=== PATIENT | male | born 1940 | race Caucasian/White ===

== ENCOUNTER → 2017-01-28 | Outpatient (CLI) | payer OTHER | LOC: FIMAGING 10:57 | PROVIDERS: ATTEND Family Medicine | DX: Z13.820 Encounter for screening for osteoporosis (principal); Z85.46 Personal history of malignant neoplasm of prostate ==

== ENCOUNTER 2017-10-16 20:27 | Emergency (ER) | payer OTHER ==
--- NOTE | 2017-10-16 20:59 | EDPHY ---
H & P Stated Complaint: BLOATING , CONSTIPATION X 7 DAYS AND NOW VOMITING Time Seen by Provider: 10/16/17 20:57 HPI/ROS: HPI: This is a 77-year-old male who presents with Chief Complaint: BLOATING , CONSTIPATION X 7 DAYS AND NOW VOMITING Location: Abdomen Quality: Bloating, constipation Duration: 7 days Signs and Symptoms: no fever, + nausea, + vomiting, no hematemesis, no blood in stool, + abdominal bloating, no diarrhea, no back pain, no urinary symptoms, no testicular/groin pain, no indigestion, no chest pain, no shortness of breath Timing: Worsening Severity: Moderate to severe Context: Patient presents with 7 day history of worsening abdominal bloating accompanied by nausea and vomiting for 6 hr 2 days ago but none since. Reports he has not had a bowel movement in over 7 days. He is not sure if he is passing gas from below. He denies any fever/urinary symptoms/diarrhea. He has a history of appendectomy and a hernia. He reports that he has abdominal discomfort at this time but no actual pain. He tried milk of magnesia without relief. Denies any blood in his urine. History of kidney stones on the right. After further questioning patient reports that around he felt left flank pain that lasted for several hours so she with the nausea and vomiting but it has since resolved. Modifying Factors: See above Comment: ROS: see HPI Constitutional: No fever, no chills, no weight loss Eyes: No blurred vision Respiratory: No shortness of breath, no cough Cardiovascular: No chest pain, no palpitations Gastrointestinal: + nausea, +vomiting, no diarrhea, no hematemesis, no blood in stool Genitourinary: No dysuria, no blood in urine Extremities: No myalgias, no edema Neurologic: No weakness, no numbness Skin: No rashes, no petechiae Hematologic: No bruising, no bleeding MEDICAL/SURGICAL/SOCIAL HISTORY: Medical/surgical history: APPENDECTOMY, HERNIA, MENEIRE'S DX, hypertension, CVA , PROSTATE CA, HIGH CHOLESTEROL, claustrophobia Social history: Nonsmoker. Family history noncontributory. CONSTITUTIONAL: Extremely pleasant nontoxic-appearing elderly white male, awake and alert, no obvious distress HEENT: Atraumatic and normocephalic, PERRL, EOMI. Nares patent; no rhinorrhea; no nasal mucosal edema. Tympanic membranes clear. Oropharynx clear, no exudate and moist pink mucosa. Airway patent. No lymphadenopathy. No meningismus. Cardiovascular: Normal S1/S2, regular rate, regular rhythm, without murmur rub or gallop. PULMONARY/CHEST: Symmetrical and nontender. Clear to auscultation bilaterally. Good air movement. No accessory muscle usage. ABDOMEN: Soft, moderately distended, mild generalized tenderness, no rebound, no guarding, no peritoneal signs, no masses or organomegaly. No CVAT. EXTREMITIES: 2/2 pulses, strength 5/5, no deformities, no clubbing, no cyanosis or edema. NEUROLOGICAL: no focal neuro deficits. GCS 15. SKIN: Warm and dry, no erythema. no rash. Good capillary refill. Source: Patient Exam Limitations: No limitations - Personal History Current Tetanus/Diphtheria Vaccine: Yes Current Tetanus Diphtheria and Acellular Pertussis (TDAP): Yes - Medical/Surgical History Hx Asthma: No Hx Chronic Respiratory Disease: No Hx Diabetes: No Hx Cardiac Disease: Yes Hx Renal Disease: No Hx Cirrhosis: No Hx Alcoholism: No Hx HIV/AIDS: No Hx Splenectomy or Spleen Trauma: No Other PMH: APPY, HERNIA, MENERS DX, HTN, CVA, PROSTATE CA, HIGH CHOLESTEROL - Social History Smoking Status: Never smoked Constitutional: Initial Vital Signs Temperature (C) 36.8 C 10/16/17 20:31 Heart Rate 80 10/16/17 20:31 Respiratory Rate 18 10/16/17 20:31 Blood Pressure 137/82 H 10/16/17 20:31 O2 Sat (%) 93 10/16/17 20:31 O2 Delivery Mode Room Air O2 (L/minute) 3 Allergies/Adverse Reactions: acetaminophen [From Tylenol] Allergy (Unknown, Verified 10/16/17 20:35) Home Medications: Medication Instructions Recorded Amlodipine 02/10/10 Flomax 02/10/10 LISINOPRIL 02/10/10 SIMVASTATIN 02/10/10 Aspirin [Aspirin 325 mg (*)] 325 mg PO DAILY 10/16/17 Diltiazem HCl [Diltiazem ER] 120 mg PO 10/16/17 Lisinopril 20 mg PO 10/16/17 Ondansetron Odt [Zofran Odt 4 mg 4 mg PO Q4 PRN #12 tab 10/16/17 (*)] Oxycodone HCl 5 mg PO Q4 PRN #10 capsule 10/16/17 Polyethylene Glycol 3350 [Miralax 17 gm PO DAILY 7 Days pkt 10/16/17 17 gm (*)] Medical Decision Making - Diagnostics Imaging Results: Imaging Impressions Abdomen/Pelvis CT 10/16/17 21:04 Impression: 1. 3.7 mm calculus in the distal left ureter with mild left hydronephrosis. Nonobstructive right nephrolithiasis. 2. Constipation. Mild diverticulosis sigmoid colon. 3. Other chronic findings as above. Results called and discussed with Giovanna Ca PA-C, at 10/16/2017 22:50. ED Course/Re-evaluation: Labs, IV fluids, IV medications, CT abdomen and pelvis scan without contrast ordered to evaluate for small bowel obstruction Patient given 1 L normal saline, IV Dilaudid 0.5 mg, IV promethazine 12.5 mg complete relief of the symptoms Vital signs reviewed upon arrival and stable. 2210: Labs reviewed. No signs of leukocytosis/anemia/elevated LFTs/electrolyte imbalance. BUN/Creatinine 31/2.0 2247: Called by radiologist who advised that CT abdomen and pelvis scan shows no signs of small-bowel obstruction. Does show 3.7 mm stone in the left ureter distal portion at the S2-S3 level with mild hydronephrosis. P.o. Flomax 0.4 mg ordered. Drinking fluids without any difficulty. Patient is appropriate for treatment outpatient. Given strainer. Patient is well-versed in kidney stones. Prepack for Percocet and Zofran. Prescription for Flomax, Toradol with Urology follow-up. This patient was seen under the supervision of my secondary supervising physician. I evaluated care for this patient independently. Discussed this patient with Dr. De Anda who did not see the patient. Differential Diagnosis: Abdominal pain including but not limited to appendicitis, cholecystitis, gastritis and urinary tract infection. - Data Points Laboratory Results: Laboratory Results 10/16/17 21:04 10/16/17 21:02 10/16/17 10/16/17 21:04 21:02 WBC 9.19 10^3/uL 10^3/uL (3.80-9.50) RBC 4.39 10^6/uL L 10^6/uL (4.40-6.38) Hgb 13.4 g/dL L g/dL (13.7-17.5) Hct 40.0 % % (40.0-51.0) MCV 91.1 fL fL (81.5-99.8) MCH 30.5 pg pg (27.9-34.1) MCHC 33.5 g/dL g/dL (32.4-36.7) RDW 14.4 % % (11.5-15.2) Plt Count 160 10^3/uL 10^3/uL (150-400) MPV 10.0 fL fL (8.7-11.7) Neut % (Auto) 74.5 % H % (39.3-74.2) Lymph % (Auto) 12.3 % L % (15.0-45.0) [place]vier % (Auto) 11.2 % % (4.5-13.0) Eos % (Auto) 1.3 % % (0.6-7.6) Baso % (Auto) 0.4 % % (0.3-1.7) Nucleat RBC Rel Count 0.0 % % (0.0-0.2) Absolute Neuts (auto) 6.84 10^3/uL H 10^3/uL (1.70-6.50) Absolute Lymphs (auto) 1.13 10^3/uL 10^3/uL (1.00-3.00) Absolute Monos (auto) 1.03 10^3/uL H 10^3/uL (0.30-0.80) Absolute Eos (auto) 0.12 10^3/uL 10^3/uL (0.03-0.40) Absolute Basos (auto) 0.04 10^3/uL 10^3/uL (0.02-0.10) Absolute Nucleated RBC 0.00 10^3/uL 10^3/uL (0-0.01) Immature Gran % 0.3 % % (0.0-1.1) Immature Gran # 0.03 10^3/uL 10^3/uL (0.00-0.10) Sodium 140 mEq/L mEq/L (135-145) Potassium 4.3 mEq/L mEq/L (3.3-5.0) Chloride 101 mEq/L mEq/L (97-110) Carbon Dioxide 25 mEq/l mEq/l (22-31) Anion Gap 14 mEq/L mEq/L (8-16) BUN 31 mg/dL H mg/dL (7-23) Creatinine 2.0 mg/dL H mg/dL (0.7-1.3) Estimated GFR 32 Glucose 127 mg/dL H mg/dL (70-100) Calcium 8.9 mg/dL mg/dL (8.5-10.4) Total Bilirubin 0.8 mg/dL mg/dL (0.1-1.4) Conjugated Bilirubin 0.5 mg/dL mg/dL (0.0-0.5) Unconjugated Bilirubin 0.3 mg/dL mg/dL (0.0-1.1) AST 29 IU/L IU/L (17-59) ALT 29 IU/L IU/L (21-72) Alkaline Phosphatase 64 IU/L IU/L (38-126) Total Protein 7.2 g/dL g/dL (6.3-8.2) Albumin 3.9 g/dL g/dL (3.5-5.0) Lipase 93 IU/L IU/L (23-300) Medications Given: Discontinued Medications Hydromorphone HCl (Dilaudid) 0.5 mg IVP EDNOW ONE Stop: 10/16/17 21:04 Last Admin: 10/16/17 21:10 Dose: 0.5 mg Sodium Chloride (Ns) 1,000 mls @ 0 mls/hr IV EDNOW ONE; Wide Open PRN Reason: Protocol Stop: 10/16/17 21:04 Last Admin: 10/16/17 21:09 Dose: 1,000 mls Promethazine HCl (Phenergan) 12.5 mg IVP EDNOW ONE Stop: 10/16/17 21:04 Last Admin: 10/16/17 21:10 Dose: 12.5 mg Tamsulosin HCl (Flomax) 0.4 mg PO EDNOW ONE Stop: 10/16/17 22:48 Last Admin: 10/16/17 22:54 Dose: 0.4 mg Departure - Departure Disposition: Home, Routine, Self-Care Clinical Impression: Ureterolithiasis, Renal colic on left side Constipation Qualifiers: Constipation type: other constipation type Qualified Code(s): K59.09 - Other constipation Condition: Good Instructions: Renal Colic (ED), Ureteral Stones (ED) Additional Instructions: Consume a minimum of 8-10 glasses of water or electrolyte fluid replacement drinks that include Gatorade, Powerade, Pedialyte. Eat a bland diet for the next 48 hours and then slowly advance as tolerated. Take Zofran 1 tab every 4 hours as needed for nausea, vomiting. Take Flomax daily until you pass the stone. Strain your urine until you see the stone. Take Percocet 1 tab every 4 hr as needed for severe pain. Follow-up with Urology in the next 1-2 weeks. Take MiraLax daily for the next 7 days. Referrals: Henok Lopez DO [Primary Care Provider] - As per Instructions Roney Allred MD [Medical Doctor] - As per Instructions Prescriptions: Ondansetron Odt [Zofran Odt 4 mg (*)] 4 mg PO Q4 PRN #12 tab PRN Reason: Nausea/Vomiting, Use 1st Oxycodone HCl 5 mg PO Q4 PRN #10 capsule PRN Reason: Pain, Breakthrough Polyethylene Glycol 3350 [Miralax 17 gm (*)] 17 gm PO DAILY 7 Days pkt
[2017-10-16] MEDS ORDERED: NS 1,000 ML IV ONE (21:03)
[2017-10-16] MEDS ORDERED: PROMETHAZINE HCL 25 MG/ML INJ IVP ONE (21:03)
[2017-10-16] MEDS ORDERED: HYDROmorphONE/DILAUDID 2 MG/ML INJ IVP ONE (21:03)
[2017-10-16] MEDS ORDERED: IOPAMIDOL (ISOVUE-300) 100 ML BTL ONE (21:12)
[2017-10-16 21:20] LABS: PLATELET COUNT 160 10^3/uL (150-400)
[2017-10-16] MEDS ORDERED: TAMSULOSIN HCL 0.4 MG CAP PO ONE (22:47)
[2017-10-16] MEDS ORDERED: ONDANSETRON 4MG PREPACK#2 BTL TAKEHOME ONE (23:20)
[2017-10-17 00:03] VITALS: BP 145/72
== END 2017-10-17 00:21 | disposition home or self-care (01) ==
DX: N20.1 Calculus of ureter (principal); K59.09 Other constipation; N23 Unspecified renal colic; E86.9 Volume depletion, unspecified; I10 Essential (primary) hypertension; Z79.82 Long term (current) use of aspirin; Z86.73 Personal history of transient ischemic attack (TIA), and cerebral infarction without residual deficits; Z85.46 Personal history of malignant neoplasm of prostate
CPT/HCPCS: 74176; 96361; 96374; 96375; 99285; J1170; J2550; Q9967

== ENCOUNTER → 2017-11-21 | Outpatient (CLI) | payer OTHER | LOC: FIMAGING 07:57 | PROVIDERS: ATTEND Family Medicine | DX: M43.16 Spondylolisthesis, lumbar region (principal); M48.07 Spinal stenosis, lumbosacral region; M53.87 Other specified dorsopathies, lumbosacral region ==

== ENCOUNTER → 2018-05-26 | Outpatient (CLI) | payer OTHER | LOC: FIMAGING 12:56 | PROVIDERS: ATTEND Family Medicine | DX: R60.0 Localized edema (principal) ==